=== PATIENT | female | born 1930 | race Caucasian/White ===

== ENCOUNTER 2019-10-01 09:21 | Day surgery (SDC) | payer MEDICARE, BC ==
[2019-10-01] MEDS ORDERED: Midazolam 1 MG/ML 2 ML SDV IV ONE (09:22)
[2019-10-01] MEDS ORDERED: Dexamethasone 4 MG/ML SDV IV ONE (09:22)
[2019-10-01] MEDS ORDERED: Sodium Chloride 0.9% 10 ML Syringe IV ONE (09:22)
[2019-10-01] MEDS ORDERED: Povidone-Iodine 5% Sterile Ophth Soln 30 ML Bottle EYERT ONE ×2 (09:30→10:54)
[2019-10-01] MEDS ORDERED: Acetaminophen 325 MG Tab PO PRN (09:30)
[2019-10-01] MEDS ORDERED: Phenylephrine 10% Ophth Soln 5 ML Bot EYERT PRN (09:30)
[2019-10-01] MEDS ORDERED: Ondansetron 4 MG/2 ML SDV IVPUSH PRN (09:30)
[2019-10-01] MEDS ORDERED: Cataract Ophth Solution EYERT ONE (09:30)
[2019-10-01] MEDS ORDERED: Moxifloxacin 0.5% Ophth Soln 3 ML Bottle EYERT ONE (09:30)
[2019-10-01] MEDS ORDERED: Phenylephrine 10% Ophth Soln 5 ML Bot EYERT ONE (09:30)
[2019-10-01] MEDS ORDERED: Proparacaine 0.5% Ophth Soln 15 ML Bottle EYERT ONE (09:30)
[2019-10-01] MEDS ORDERED: Sodium Chloride 0.9% 10 ML Syringe FLUSH PRN (09:30)
[2019-10-01] MEDS ORDERED: Timolol Maleate 0.5% Ophth Soln 5 ML Bottle EYERT ONE (09:30)
[2019-10-01] MEDS ORDERED: Tetracaine HCl/PF 0.5% 4 ML Bottle EYERT ONE (10:55)
[2019-10-01] MEDS ORDERED: Lidocaine 1% 30 ML SDV ONE (10:55)
[2019-10-01] MEDS ORDERED: Diclofenac Sodium 0.1% Ophth Soln 5 ML Bottle EYERT ONE (10:56)
[2019-10-01] MEDS ORDERED: Apraclonidine 0.5% Ophth Soln 5 ML Bot EYERT ONE (10:56)
[2019-10-01] MEDS ORDERED: Dexamethasone/Neomycin/Polymyxin B Ophth Oint 3.5 GM Tube EYERT ONE (10:57)
[2019-10-01] MEDS ORDERED: Vancomycin 500 MG SDV EYERT ONE (10:57)
[2019-10-01] MEDS ORDERED: Balanced Salt Solution Ophth Irrig 500 ML Bottle IOCULAR ONE (10:58)
[2019-10-01] MEDS ORDERED: Chondroitin Sulfate/Hyaluronate Sodium Ophth Inj 0.75 ML Syringe EYERT ONE (10:58)
[2019-10-01] MEDS ORDERED: Carbachol 0.01% Intraocular 1.5 ML Vial EYERT ONE (10:59)
--- NOTE | 2019-10-01 14:38 | OR ---
DATE: 10/01/2019 PREOPERATIVE DIAGNOSIS: Visually significant complex cataract, right eye, with zonular disease, 2 clock hours. PREOPERATIVE DIAGNOSIS: Visually significant complex cataract, right eye, with zonular disease, 2 clock hours. PROCEDURE: Extracapsular cataract extraction with intraocular lens implant, right eye, complex. INDICATION: Ms. Weiner was seen in the clinic with complaints of blurred vision. 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 I explained options, I offered cataract surgery, and I explained risks preoperatively including, but not limited to infection, retinal detachment, loss of vision, need for additional surgery. Also explained risks associated with pseudoexfoliation including lens implant dislocation due to zonular disease. She is symptomatic and voiced an understanding. She does have a history of macular degeneration and understands that her visual potential may be limited by retinal health. OPERATIVE DESCRIPTION: After informed consent was obtained and the risks, benefits, and alternatives were explained, the patient was brought to the OR, prepped and draped in a sterile fashion. Attention was placed on the right eye. Sterile lid speculum was placed into the right eye to allow operative exposure. Full-thickness paracentesis was then made temporal. Preservative-free lidocaine followed by viscoelastic was injected into the anterior chamber. A 2.75 mm corneal incision was then made temporally. A bent needle cystotome was then used to create a small caroline in the anterior capsule, 360-degree 5-mm curvilinear capsulorrhexis was created. Nucleus was then hydrodissected, hydrodelineated, decompressed centrally and rotated, noted to be free of any adhesions. Nucleus did rotate slow suggestive of zonulopathy. Nucleus was then removed using a quick chop technique at the iris plane. Following removal of the nucleus, the remaining cortical material was removed using the irrigation and aspiration handpiece. While removing cortex from the 10 to 12 clock hour, significant zonulopathy was noted. I injected additional Viscoat into the capsular bag. Intraocular lens was inserted. Haptics were oriented with the superior haptic oriented to the 10 to 12 o'clock position. I and A was then used to remove Viscoat from the anterior chamber. While removing I and A, an additional approximately 1 clock hour of zonular dehiscence occurred to approximately 12 to 1 o'clock. Slight prolapse of the vitreous was noted at approximately 12 o'clock position. I injected additional Viscoat, used a [employer] scissors to cut, make incisions, and excise any prolapse vitreous at the 12 o'clock position. I then injected Miostat. The pupil was noted to constrict circumferentially around. I used a Weck-Jen sponge to test the corneal incision. No vitreous prolapse was noted. The remaining of the viscoelastic was aspirated from the anterior chamber. Wound and paracentesis sites were hydrated, 0.1 mL of preservative-free vancomycin was injected intracamerally. Intraocular ocular pressure was assessed and found to be in the high normal range. Wound and paracentesis sites were Tammy negative. Intraocular lens was clear and well centered. Good red reflex was noted. Postoperative medications were then administered. Sterile patch and shield were placed over the eye. The patient was awakened from light sedation and transported to the postoperative recovery area having tolerated the procedure well. [facility] /[id number]
== END 2019-10-01 12:08 | disposition home or self-care (01) ==
LOC: DL.SDS 09:21
PROVIDERS: ATTEND Ophthalmology
DX: H26.8 Other specified cataract (principal); E78.5 Hyperlipidemia, unspecified; I10 Essential (primary) hypertension; M35.3 Polymyalgia rheumatica; F32.9 Major depressive disorder, single episode, unspecified; Z88.1 Allergy status to other antibiotic agents; Z79.82 Long term (current) use of aspirin; Z79.52 Long term (current) use of systemic steroids; Z79.899 Other long term (current) drug therapy
CPT/HCPCS: 66982; A9270; J1100; J2001; J2250; J3370; V2632

== ENCOUNTER 2019-10-08 09:09 | Day surgery (SDC) | payer MEDICARE, BC ==
[2019-10-08] MEDS ORDERED: Dexamethasone 4 MG/ML SDV IV ONE (09:10)
[2019-10-08] MEDS ORDERED: Sodium Chloride 0.9% 10 ML Syringe IV ONE (09:10)
[2019-10-08] MEDS ORDERED: Midazolam 1 MG/ML 2 ML SDV IV ONE (09:10)
[2019-10-08] MEDS ORDERED: Proparacaine 0.5% Ophth Soln 15 ML Bottle EYELF ONE (09:30)
[2019-10-08] MEDS ORDERED: Sodium Chloride 0.9% 10 ML Syringe FLUSH PRN (09:30)
[2019-10-08] MEDS ORDERED: Cataract Ophth Solution EYELF ONE (09:30)
[2019-10-08] MEDS ORDERED: Phenylephrine 10% Ophth Soln 5 ML Bot EYELF PRN (09:30)
[2019-10-08] MEDS ORDERED: Ondansetron 4 MG/2 ML SDV IVPUSH PRN (09:30)
[2019-10-08] MEDS ORDERED: Timolol Maleate 0.5% Ophth Soln 5 ML Bottle EYELF ONE (09:30)
[2019-10-08] MEDS ORDERED: Phenylephrine 10% Ophth Soln 5 ML Bot EYELF ONE (09:30)
[2019-10-08] MEDS ORDERED: Acetaminophen 325 MG Tab PO PRN (09:30)
[2019-10-08] MEDS ORDERED: Povidone-Iodine 5% Sterile Ophth Soln 30 ML Bottle EYELF ONE ×2 (09:30→11:04)
[2019-10-08] MEDS ORDERED: Moxifloxacin 0.5% Ophth Soln 3 ML Bottle EYELF ONE (09:30)
[2019-10-08] MEDS ORDERED: Tetracaine HCl/PF 0.5% 4 ML Bottle EYELF ONE (11:03)
[2019-10-08] MEDS ORDERED: Vancomycin 500 MG SDV EYELF ONE (11:04)
[2019-10-08] MEDS ORDERED: Diclofenac Sodium 0.1% Ophth Soln 5 ML Bottle EYELF ONE (11:04)
[2019-10-08] MEDS ORDERED: Dexamethasone/Neomycin/Polymyxin B Ophth Oint 3.5 GM Tube EYELF ONE (11:04)
[2019-10-08] MEDS ORDERED: Apraclonidine 0.5% Ophth Soln 5 ML Bot EYELF ONE (11:04)
[2019-10-08] MEDS ORDERED: Chondroitin Sulfate/Hyaluronate Sodium Ophth Inj 0.75 ML Syringe EYELF ONE (11:05)
[2019-10-08] MEDS ORDERED: Lidocaine 1% 30 ML SDV ONE (11:05)
[2019-10-08] MEDS ORDERED: Balanced Salt Solution Ophth Irrig 500 ML Bottle IOCULAR ONE (11:05)
--- NOTE | 2019-10-08 12:15 | OR ---
DATE: 10/08/2019 PREOPERATIVE DIAGNOSIS: Visually significant mixed cataract, left eye. POSTOPERATIVE DIAGNOSIS: Visually significant mixed cataract, left eye. PROCEDURE: Extracapsular cataract extraction with intraocular lens implant, left eye. ANESTHESIA: Topical/local MAC. COMPLICATIONS: None. INDICATION: Ms. Weiner was seen in the clinic with complaints of blurred vision. 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 I explained options, I offered cataract surgery, and I explained risks including, but not limited to, infection, retinal detachment, loss of vision, need for additional surgery, and risks associated with anesthesia. I also explained risks associated with pseudoexfoliation including lens and implant dislocation. She is symptomatic and voiced an understanding. She requested surgery. She requested a monofocal implant. OPERATIVE DESCRIPTION: After informed consent was obtained and the risks, benefits, and alternatives were explained, the patient was brought to the operative suite and topical anesthesia was administered. The patient was then prepped and draped in the sterile fashion and attention was placed on the left eye. A sterile lid speculum was placed into the left eye to allow operative exposure. A full-thickness paracentesis was made in the temporal portion of the operative eye. Preservative-free lidocaine 0.1 mL was injected into the anterior chamber followed by viscoelastic. A full-thickness corneal incision was then made into the anterior chamber. A bent needle cystotome was used to create a small caroline in the anterior capsule. The capsulorrhexis forceps was then used to create a 360-degree curvilinear capsulorrhexis. The nucleus was then removed using a phacoemulsification handpiece and the remaining cortical material was then removed with irrigation and aspiration handpiece. Following removal of the cortical material, the capsular bag was then inspected and noted to be free of any holes or tears. Viscoelastic was then injected into the capsular bag and the intraocular lens was inserted into the capsular bag. The viscoelastic material was then removed from both the anterior and posterior chambers and from behind the IOL. The lens and capsular bag were then reinspected. The IOL was well centered and the capsular bag intact. The wound and paracentesis sites were inspected and hydrated with balanced saline solution. Both were found to be self- sealing. The intraocular pressure was assessed digitally and found to be within normal range. A good red reflex was noted at the completion of the procedure. No complications occurred during the operation. At the completion of the procedure, Maxitrol, Voltaren, and Iopidine drops were placed into the operative eye. A sterile eye shield was placed over the operative eye and the patient was transported to the postoperative recovery area having tolerated the procedure well. Postoperative instructions were given along with a postoperative appointment. The patient was advised to call with any questions or concerns. [facility] /[id number]
== END 2019-10-08 12:27 | disposition home or self-care (01) ==
LOC: DL.SDS 09:09
PROVIDERS: ATTEND Ophthalmology
DX: H26.8 Other specified cataract (principal); E78.5 Hyperlipidemia, unspecified; I10 Essential (primary) hypertension; E03.9 Hypothyroidism, unspecified; F32.9 Major depressive disorder, single episode, unspecified; M35.3 Polymyalgia rheumatica; Z88.1 Allergy status to other antibiotic agents; Z79.52 Long term (current) use of systemic steroids; Z79.82 Long term (current) use of aspirin; Z79.899 Other long term (current) drug therapy
CPT/HCPCS: 00142; 66984; A9270; J2001; J3370; V2632; J1100; J2250